=== PATIENT | female | born 1975 | race Caucasian/White ===

== ENCOUNTER 2016-11-29 09:22 | Observation (INO) | payer MEDICAID ==
[~2016-11-29] VITALS: Ht 175.3 cm; Wt 155.0 kg
[2016-11-29] VITALS (13 sets, daily range): BP systolic 114–143; BP diastolic 58–86; PULSE 64–95; RESP 16–22; TEMP 97–98.4; O2SAT 95–100
[~2016-11-29 09:22] MED LIST: ADVA100A INH; FERR325T PO; LEVO200T4 PO; MEDR150I9 IM; METR500T10 PO; MULT1TAB46; VENTAER INH
[2016-11-29] MEDS ORDERED: CYCL1TAB29 PO (09:46)
[2016-11-29] MEDS ORDERED: OMEP40CA2 PO (09:46)
[2016-11-29] MEDS ORDERED: HYDR25TA5 PO (09:46)
[2016-11-29 10:12] LABS: MEAN CORPUSCULAR HGB CONC 28.3 % (32.0-36.0)
--- NOTE | 2016-11-29 10:15 | PD ---
HPI Chief Complaint: Abnormal Results Time Seen by Provider: 09:51 Travel History International Travel<30 days: No Contact w/Intl Traveler<30days: No Traveled to known affect area: No History of Present Illness HPI 41-year-old female complains of generalized malaise and anemia. Patient has history of menorrhagia and anemia. Patient has been seen by supply specialist and retail and restaurant associate. Patient had blood tests done 4 days ago and hemoglobin was found to be 6.9. Patient was advised by her retail and restaurant associate Dr. Waddell to go to the hospital for blood transfusion. Patient denies any headache. Patient denies any chest pain or shortness of breath. Patient denies abdominal pain. Patient states that menstruation period stop 2 days ago. Patient denies any dysuria or frequency. Patient denies any fever chills. Patient also has history of COPD, Graves' disease with hypothyroidism, GERD, COPD, fibromyalgia and chronic iron deficiency anemia. PFSH Past Medical History Anemia: Yes (CHRONIC IS SUPPOSED TO BE ON IRON, IS OUT) Asthma: Yes Autoimmune Disease: No Blood Disorders: No Anxiety: Yes Depression: Yes Cancer: No Cardiovascular Problems: No Diabetes: No Diminished Hearing: No Endocrine: Yes Genitourinary: No Immune Disorder: No Musculoskeletal: No Neurologic: No Psychiatric: Yes Reproductive: No Respiratory: Yes Immunizations Current: Yes Thyroid Disease: Yes (HYPO) ?: Not LMP: 11/24/16 : 1 Para: 0 Miscarriage: 1 Ovarian Cysts: Yes Tubal Ligation: Yes Past Surgical History Abdominal Surgery: Yes (exp. lap) AICD: No Arteriovenous Shunt: No Cardiac Surgery: No Ear Surgery: No Endocrine Surgery: No Eye Surgery: No Genitourinary Surgery: No Gynecologic Surgery: No Insulin Pump: No Joint Replacement: No Oral Surgery: No Pacemaker: No Other Surgery: Yes (LAPAROSCOPY FOR CYSTS ) Social History Alcohol Use: Yes (OCCASSIONAL) Tobacco Use: Yes (ABOUT A 1/2 PPD) Substance Use: Yes (Marijuana use, HX COCAINE USE) Allergies-Medications (Allergen,Severity, Reaction): Coded Allergies: Propylthiouracil (Verified Allergy, Mild, 11/29/16) Reported Meds & Prescriptions Reported Meds & Active Scripts Active Depo-Provera Inj (Medroxyprogesterone Inj) 150 Mg/Ml Inj 150 Mg IM Q90D PRN Reported Omeprazole 40 Mg Cap 40 Mg PO DAILY Hydrochlorothiazide 25 Mg Tab 25 Mg PO DAILY Flexeril (Cyclobenzaprine HCl) 10 Mg Tab 10 Mg PO TID Levothyroxine (Levothyroxine Sodium) 200 Mcg Tab 200 Mcg PO DAILY Advair Diskus Inh (Fluticasone-Salmeterol Inh) 100-50 Mcg/Blist Aer 1 Puff INH BID Rinse mouth after use. Ventolin Hfa 18 GM Inh (Albuterol Sulfate) 90 Mcg/Act Aer 2 Puff INH Q4-6H PRN Review of Systems General / Constitutional: No: Fever Eyes: No: Visual changes HENT: No: Headaches Cardiovascular: No: Chest Pain or Discomfort Respiratory: No: Shortness of Breath Gastrointestinal: No: Abdominal Pain Genitourinary: No: Dysuria Musculoskeletal: No: Pain Skin: No Rash Neurologic: No: Weakness Psychiatric: No: Depression Endocrine: No: Polydipsia Hematologic/Lymphatic: No: Easy Bruising Physical Exam Narrative GENERAL: Well-nourished, well-developed patient. SKIN: Focused skin assessment warm/dry. HEAD: Normocephalic. EYES: No scleral icterus. No injection or drainage. NECK: Supple, trachea midline. No JVD or lymphadenopathy. CARDIOVASCULAR: Regular rate and rhythm without murmurs, gallops, or rubs. RESPIRATORY: Breath sounds equal bilaterally. No accessory muscle use. GASTROINTESTINAL: Abdomen soft, non-tender, nondistended. MUSCULOSKELETAL: No cyanosis, or edema. BACK: Nontender without obvious deformity. No CVA tenderness. Neurologic exam normal. Data Data Last Documented VS Vital Signs Date Time Temp Pulse Resp B/P Pulse Ox O2 Delivery O2 Flow Rate FiO2 11/29/16 11:00 88 16 142/63 97 Room Air 11/29/16 09:24 98.4 Orders Complete Blood Count With Diff (11/29/16 10:10) Basic Metabolic Panel (Bmp) (11/29/16 10:10) Prothrombin Time / Inr (Pt) (11/29/16 10:10) Act Partial Throm Time (Ptt) (11/29/16 10:10) Iv Access Insert/Monitor (11/29/16 10:10) Ecg Monitoring (11/29/16 10:10) Oximetry (11/29/16 10:10) Type And Screen (11/29/16 10:10) Vascular Access Team Consult/P PRN (11/29/16 10:43) Vascular Poc Ultrasound (11/29/16 ) Morphine Inj (Morphine Inj) (11/29/16 13:15) Ondansetron Inj (Zofran Inj) (11/29/16 13:15) Labs Laboratory Tests Test 11/29/16 12:51 White Blood Count 13.2 TH/MM3 Red Blood Count 3.50 MIL/MM3 Hemoglobin 7.2 GM/DL Hematocrit 25.5 % Mean Corpuscular Volume 72.9 FL Mean Corpuscular Hemoglobin 20.6 PG Mean Corpuscular Hemoglobin 28.3 % Concent Red Cell Distribution Width 22.5 % Platelet Count 269 TH/MM3 Mean Platelet Volume 8.4 FL Neutrophils (%) (Auto) 74.5 % Lymphocytes (%) (Auto) 18.1 % Monocytes (%) (Auto) 3.9 % Eosinophils (%) (Auto) 2.2 % Basophils (%) (Auto) 1.3 % Neutrophils # (Auto) 9.8 TH/MM3 Lymphocytes # (Auto) 2.4 TH/MM3 Monocytes # (Auto) 0.5 TH/MM3 Eosinophils # (Auto) 0.3 TH/MM3 Basophils # (Auto) 0.2 TH/MM3 CBC Comment AUTO DIFF Differential Total Cells 100 Counted Neutrophils % (Manual) 67 % Band Neutrophils % 5 % Lymphocytes % 15 % Monocytes % 7 % Eosinophils % 3 % Neutrophils # (Manual) 9.9 TH/MM3 Metamyelocytes 2 % Myelocytes 1 % Nucleated Red Blood Cells 4 /100 WBC Differential Comment FINAL DIFF MANUAL Platelet Estimate NORMAL Platelet Morphology Comment NORMAL Polychromasia 5.0 % Prothrombin Time 10.4 SEC Prothromb Time International 0.9 RATIO Ratio Activated Partial 26.9 SEC Thromboplast Time Sodium Level 141 MEQ/L Potassium Level 3.5 MEQ/L Chloride Level 104 MEQ/L Carbon Dioxide Level 29.1 MEQ/L Anion Gap 8 MEQ/L Blood Urea Nitrogen 9 MG/DL Creatinine 0.80 MG/DL Estimat Glomerular Filtration 80 ML/MIN Rate Random Glucose 90 MG/DL Calcium Level 8.4 MG/DL Blood Type O POSITIVE Antibody Screen NEGATIVE MDM Medical Decision Making Medical Screen Exam Complete: Yes Emergency Medical Condition: Yes Interpretation(s) 1408 p.m. CBC WBC 13.2. Hemoglobin 7.2 hematocrit 25.5. MCV 72.9. 74 neutrophil. BMP within normal limit. Calcium 8.4. Differential Diagnosis Differential diagnosis including anemia, viral syndrome, electrolyte abnormality , dehydration. Narrative Course 41-year-old female with generalized malaise and history of chronic anemia. Diagnosis Primary Impression: Iron deficiency anemia Qualified Code: D50.9 - Iron deficiency anemia, unspecified iron deficiency anemia type Dayron Mckeon MD November 29, 2016 10:15
[2016-11-29 13:14] LABS: AUTOMATED NEUTROPHIL # 9.8 TH/MM3 (1.8-7.7); BASOPHIL # 0.2 TH/MM3 (0-0.2); BASOPHIL % 1.3 % (0.0-2.0); EOSINOPHIL # 0.3 TH/MM3 (0-0.4); EOSINOPHIL % 2.2 % (0.0-4.0); HEMATOCRIT 25.5 % (35.0-46.0); HEMO FLAGS AUTO DIFF; LYMPH % 18.1 % (9.0-44.0); LYMPHOCYTE # 2.4 TH/MM3 (1.0-4.8); MEAN CELL VOLUME 72.9 FL (80.0-100.0); MEAN CORPUSCULAR HEMOGLOBIN 20.6 PG (27.0-34.0); MONO % 3.9 % (0.0-8.0); NEUT % 74.5 % (16.0-70.0); PLATELET COUNT 269 TH/MM3 (150-450); RED CELL DISTRIBUTION WIDTH 22.5 % (11.6-17.2); WHITE BLOOD COUNT 13.2 TH/MM3 (4.0-11.0)
[2016-11-29] MEDS ORDERED: ONDANSETRON HCL 4 MG/2 ML VIAL IV PUSH ONE (13:15)
[2016-11-29] MEDS ORDERED: MORPHINE SULFATE 4 MG/ML INJ IV PUSH ONE (13:15)
[2016-11-29 13:26] LABS: APTT (PATIENT) 26.9 SEC (24.3-30.1); INTERNATIONAL NORMALIZED RATIO 0.9 RATIO; PROTHROMBIN TIME - PATIENT 10.4 SEC (9.8-11.6)
[2016-11-29 13:48] LABS: BICARBONATE 29.1 MEQ/L (21.0-32.0); POTASSIUM 3.5 MEQ/L (3.5-5.1)
[2016-11-29 13:50] LABS: BANDS 5 % (0-6); CORRECTED NUCLEATED RBC 4 /100 WBC (0-0); EOSINOPHILS 3 % (0-4); METAMYELOCYTES 2 % (0-1); MYELOCYTES 1 % (0-0); NEUTROPHIL # MANUAL DIFF 9.9 TH/MM3 (1.8-7.7); POLYS (SEG NEUTROPHILS) 67 % (16-70); WBC DIFF SAMPLE 100
[2016-11-29 13:52] LABS: PLATELET ESTIMATE SMEAR NORMAL (NORMAL); PLATELET MORPHOLOGY NORMAL (NORMAL); SCAN/DIFF FINAL DIFF MANUAL
[2016-11-29] MEDS ORDERED: SODIUM CHLOR 0.9% 250 ML INJ 250 ML IV ONE (14:30)
[2016-11-29] MEDS ORDERED: SODIUM CHLORIDE 0.9% FLUSH 10 ML FLUSH IV FLUSH PRN (15:00)
[2016-11-29] MEDS ORDERED: ACETAMINOPHEN 325 MG TAB PO PRN (15:00)
[2016-11-29] MEDS ORDERED: NALOXONE HCL 0.4 MG/ML AMP IV PRN (15:00)
[2016-11-29] MEDS ORDERED: ONDANSETRON HCL 4 MG/2 ML VIAL IVP PRN (15:00)
[2016-11-29] MEDS ORDERED: MAGNESIUM HYDROXIDE SUSP 30 ML CUP PO PRN (15:00)
[2016-11-29 16:15] LABS: TRANSFERRIN IRON PROFILE 272 MG/DL (200-360)
--- NOTE | 2016-11-29 17:04 | HHI.HP ---
[facility] Richard Knight Admission Diagnosis anemia Diagnoses: Chief Complaint: Generalized weakness, and anemia Travel History International Travel<30 Days: No Contact w/Intl Traveler <30 Da: No Traveled to Known Affected Are: No Sepsis Criteria SIRS Criteria (2 or more): Heart rate over 90, RR > 20 or PaCO2 < 32, WBC > 84365, < 4000 or > 10% bands History of Present Illness Ms. Klein is a pleasant 41-year-old female with a history of iron deficiency anemia, hypothyroidism and morbid obesity who presents to the emergency department on 11/29/2016 with generalized malaise and anemia. Patient has a history of menorrhagia and anemia. She is being followed by her er medical technician and house piping inspector. Four days ago her lab work shows hemoglobin 6.9. She was advised by her house piping inspector to come to the hospital for blood transfusion. She reports her menstruation periods stopped 2 days ago. Patient denies any chest pain, shortness of breath, fever or chills. Denies any changes in bowel or bladder habits. Review of Systems Except as stated in HPI: all other systems reviewed are Neg Past Family Social History Past Medical History Anemia, hypothyroidism, anxiety and depression Past Surgical History Exploratory laparotomy Reported Medications Depo-Provera Inj (Medroxyprogesterone Inj) 150 Mg/Ml Inj 150 Mg IM Q90D PRN Reported Omeprazole 40 Mg Cap 40 Mg PO DAILY Hydrochlorothiazide 25 Mg Tab 25 Mg PO DAILY Flexeril (Cyclobenzaprine HCl) 10 Mg Tab 10 Mg PO TID Levothyroxine (Levothyroxine Sodium) 200 Mcg Tab 200 Mcg PO DAILY Advair Diskus Inh (Fluticasone-Salmeterol Inh) 100-50 Mcg/Blist Aer 1 Puff INH BID Rinse mouth after use. Ventolin Hfa 18 GM Inh (Albuterol Sulfate) 90 Mcg/Act Aer 2 Puff INH Q4-6H PRN Allergies: Coded Allergies: Propylthiouracil (Verified Allergy, Mild, 11/29/16) Family History Mother - Cervical cancer, ovarian cysts. Social History Smokes about half pack a day. Drinks alcohol occasionally. Uses marijuana sometimes. Physical Exam Vital Signs Vital Signs Date Time Temp Pulse Resp B/P Pulse Ox O2 Delivery O2 Flow Rate FiO2 11/29/16 16:38 98.0 75 20 137/68 97 11/29/16 14:00 78 16 134/58 97 Room Air 11/29/16 11:00 88 16 142/63 97 Room Air 11/29/16 10:48 22 99 Room Air 11/29/16 09:24 98.4 95 22 137/86 98 Physical Exam GENERAL: This is a well-nourished, well-developed patient, in no apparent distress. Morbidly obese. SKIN: No rashes, ecchymoses or lesions. Warm and dry. HEAD: Atraumatic. Normocephalic. No temporal or scalp tenderness. EYES: Pupils equal round and reactive. No injection or drainage. Bilateral exophthalmos present. ENT: Nose without bleeding, purulent drainage or septal hematoma. Airway patent. NECK: Trachea midline. No lymphadenopathy. Supple, nontender, no meningeal signs. CARDIOVASCULAR: Regular rate and rhythm without murmurs, gallops, or rubs. No JVD. RESPIRATORY: Clear to auscultation. Breath sounds equal bilaterally. No wheezes , rales, or rhonchi. GASTROINTESTINAL: Abdomen soft, non-tender, nondistended. No guarding. MUSCULOSKELETAL: Extremities without clubbing, cyanosis, or edema. NEUROLOGICAL: Awake and alert. Cranial nerves II through XII intact. No focal neurological deficits. Normal speech. Laboratory Laboratory Tests Test 11/29/16 11/29/16 12:51 14:22 White Blood Count 13.2 Red Blood Count 3.50 Hemoglobin 7.2 Hematocrit 25.5 Mean Corpuscular Volume 72.9 Mean Corpuscular Hemoglobin 20.6 Mean Corpuscular Hemoglobin 28.3 Concent Red Cell Distribution Width 22.5 Platelet Count 269 Mean Platelet Volume 8.4 Neutrophils (%) (Auto) 74.5 Lymphocytes (%) (Auto) 18.1 Monocytes (%) (Auto) 3.9 Eosinophils (%) (Auto) 2.2 Basophils (%) (Auto) 1.3 Neutrophils # (Auto) 9.8 Lymphocytes # (Auto) 2.4 Monocytes # (Auto) 0.5 Eosinophils # (Auto) 0.3 Basophils # (Auto) 0.2 CBC Comment AUTO DIFF Differential Total Cells 100 Counted Neutrophils % (Manual) 67 Band Neutrophils % 5 Lymphocytes % 15 Monocytes % 7 Eosinophils % 3 Neutrophils # (Manual) 9.9 Metamyelocytes 2 Myelocytes 1 Nucleated Red Blood Cells 4 Differential Comment FINAL DIFF MANUAL Platelet Estimate NORMAL Platelet Morphology Comment NORMAL Polychromasia 5.0 Prothrombin Time 10.4 Prothromb Time International 0.9 Ratio Activated Partial 26.9 Thromboplast Time Sodium Level 141 Potassium Level 3.5 Chloride Level 104 Carbon Dioxide Level 29.1 Anion Gap 8 Blood Urea Nitrogen 9 Creatinine 0.80 Estimat Glomerular Filtration 80 Rate Random Glucose 90 Calcium Level 8.4 Iron Level 62 Total Iron Binding Capacity 381 Percent Iron Saturation 16.3 Blood Type O POSITIVE Antibody Screen NEGATIVE Crossmatch Leukocyte-Reduced Red Blood Cells Blood Bank Comment Result Diagram: 11/29/16 1251 11/29/16 1251 Assessment and Plan Problem List: (1) Iron deficiency anemia ICD Code: D50.9 Status: Acute (2) Morbid obesity with BMI of 50.0-59.9, adult ICD Code: E66.01 Status: Acute (3) Hypothyroidism ICD Code: E03.9 Status: Acute (4) GERD (gastroesophageal reflux disease) ICD Code: K21.9 Status: Acute Assessment and Plan Ms. Klein is a 41-year-old female with a history of morbid obesity, hypothyroidism, chronic anemia who presented to the emergency department on 2016 due to generalized malaise and anemia. She recently had blood work which suggested hemoglobin 6.9 and patient was subsequently advised to come to the emergency room for blood transfusion. She denied any chest pain, shortness of breath, fever or chills. - Acute iron deficiency anemia - Likely due to menorrhagia. - Iron study shows iron level 62, TIBC is 381 iron saturation 16.3%. - Patient gets regular Iron infusion at her house piping inspector's office. - Patient is receiving 1 unit of PRBCs. - Headache - Acetaminophen PRN - Toradol given once which seems to help to relieve her symptoms. - Hypothyroidism - continue levothyroxine 200 g daily. - Hypertension - continue HCTZ 25 mg daily. - GERD - continue PPI. Full code. SCDs. Discharge plan: Discharge home on 11/30/2016 and follow up with her house piping inspector. Abhinav Silvestre DO November 29, 2016 17:04
[2016-11-29] MEDS ORDERED: KETOROLAC TROMETHAMINE 30 MG/ML (IVP) VIAL IV PUSH ONE (17:15)
[2016-11-29] MEDS: CYCLOBENZAPRINE HCL 10 MG TAB PO PRN (17:36)
[2016-11-29] MEDS: SODIUM CHLORIDE 0.9% FLUSH 10 ML FLUSH IV FLUSH SCH (20:39)
[2016-11-29 21:05] LABS: MEAN CORPUSCULAR HGB CONC 29.7 % (32.0-36.0)
[2016-11-29] MEDS ORDERED: CYCLOBENZAPRINE HCL 10 MG TAB PO ONE (22:15)
[2016-11-30 01:19] VITALS: BP 132/75; PULSE 64; RESP 19; TEMP 97.6; O2SAT 95
[2016-11-30 04:16] VITALS: BP 140/71; PULSE 62; RESP 18; TEMP 96; O2SAT 97
[2016-11-30] MEDS ORDERED: LEVOTHYROXINE SODIUM 200 MCG TAB PO SCH (06:00)
[2016-11-30 07:56] VITALS: BP 119/56; PULSE 68; RESP 20; TEMP 98.3; O2SAT 95
[2016-11-30] MEDS: SODIUM CHLORIDE 0.9% FLUSH 10 ML FLUSH IV FLUSH SCH (08:06)
[2016-11-30] MEDS: CYCLOBENZAPRINE HCL 10 MG TAB PO PRN (08:06)
[2016-11-30 08:43] LABS: AUTOMATED NEUTROPHIL # 8.3 TH/MM3 (1.8-7.7); BASOPHIL # 0.1 TH/MM3 (0-0.2); BASOPHIL % 0.7 % (0.0-2.0); EOSINOPHIL # 0.2 TH/MM3 (0-0.4); HEMATOCRIT 29.5 % (35.0-46.0); LYMPH % 18.8 % (9.0-44.0); LYMPHOCYTE # 2.1 TH/MM3 (1.0-4.8); MEAN CORPUSCULAR HEMOGLOBIN 22.3 PG (27.0-34.0); MONO % 4.2 % (0.0-8.0); NEUT % 74.3 % (16.0-70.0); PLATELET COUNT 222 TH/MM3 (150-450); RED BLOOD COUNT 3.93 MIL/MM3 (4.00-5.30); RED CELL DISTRIBUTION WIDTH 26.2 % (11.6-17.2); WHITE BLOOD COUNT 11.2 TH/MM3 (4.0-11.0)
[2016-11-30 08:45] LABS: HEMO FLAGS AUTO DIFF
[2016-11-30] MEDS ORDERED: NON-FORMULARY DRUG (Omeprazole 40 MG) PO SCH (09:00)
[2016-11-30] MEDS ORDERED: HYDROCHLOROTHIAZIDE 25 MG TAB PO SCH (09:00)
[2016-11-30] MEDS ORDERED: PANTOPRAZOLE SOD 40 MG DELAYED RELEASE TAB PO SCH (09:00)
[2016-11-30 09:37] LABS: BANDS 5 % (0-6); CORRECTED NUCLEATED RBC 2 /100 WBC (0-0); EOSINOPHILS 2 % (0-4); METAMYELOCYTES 1 % (0-1); NEUTROPHIL # MANUAL DIFF 8.1 TH/MM3 (1.8-7.7); POLYS (SEG NEUTROPHILS) 66 % (16-70); WBC DIFF SAMPLE 100
[2016-11-30 09:38] LABS: POLYCHROMASIA 4.2 % (0.0-1.9)
[2016-11-30 09:39] LABS: STOMATOCYTES 1+ (NORMAL)
[2016-11-30 09:41] LABS: PLATELET ESTIMATE SMEAR NORMAL (NORMAL); PLATELET MORPHOLOGY NORMAL (NORMAL); SCAN/DIFF FINAL DIFF MANUAL
--- NOTE | 2016-11-30 09:53 | HHI.PR ---
Subjective Remarks Follow up for anemia. Patient is doing well. No fever, chills. Objective Vitals Vital Signs Date Time Temp Pulse Resp B/P Pulse Ox O2 Delivery O2 Flow Rate FiO2 11/30/16 07:56 98.3 68 20 119/56 95 11/30/16 04:16 96.0 62 18 140/71 97 11/30/16 01:19 97.6 64 19 132/75 95 11/29/16 23:56 97.4 65 18 131/66 95 11/29/16 23:39 97.5 75 18 143/77 98 11/29/16 23:25 97.3 70 18 114/58 95 11/29/16 22:55 97.9 64 17 128/60 95 11/29/16 20:50 97.0 75 19 128/62 97 11/29/16 19:40 97.4 74 17 128/61 99 11/29/16 18:55 98.0 73 18 132/62 97 11/29/16 18:40 98.2 77 20 131/63 100 11/29/16 16:38 98.0 75 20 137/68 97 11/29/16 14:00 78 16 134/58 97 Room Air 11/29/16 11:00 88 16 142/63 97 Room Air 11/29/16 10:48 22 99 Room Air Result Diagram: 11/30/16 0815 11/29/16 1251 Objective Remarks GENERAL: AOx3, NAD. Morbidly obese. SKIN: Warm and dry. HEAD: Normocephalic. EYES: No scleral icterus. No injection or drainage. Bilateral exophthalmos. NECK: Supple, trachea midline. No JVD or lymphadenopathy. CARDIOVASCULAR: Regular rate and rhythm without murmurs, gallops, or rubs. RESPIRATORY: Breath sounds equal bilaterally. No accessory muscle use. GASTROINTESTINAL: Abdomen soft, non-tender, nondistended. MUSCULOSKELETAL: No cyanosis, or edema. BACK: Nontender without obvious deformity. No CVA tenderness. A/P Problem List: (1) Iron deficiency anemia ICD Code: D50.9 Status: Acute (2) Morbid obesity with BMI of 50.0-59.9, adult ICD Code: E66.01 Status: Acute (3) Hypothyroidism ICD Code: E03.9 Status: Acute (4) GERD (gastroesophageal reflux disease) ICD Code: K21.9 Status: Acute Assessment and Plan Ms. Klein is a 41-year-old female with a history of morbid obesity, hypothyroidism, chronic anemia who presented to the emergency department on 2016 due to generalized malaise and anemia. She recently had blood work which suggested hemoglobin 6.9 and patient was subsequently advised to come to the emergency room for blood transfusion. She denied any chest pain, shortness of breath, fever or chills. - Acute iron deficiency anemia - Likely due to menorrhagia. - Iron study shows iron level 62, TIBC is 381 iron saturation 16.3%. - Patient gets regular Iron infusion at her visual arts teacher's office. - Patient received 1 unit of PRBCs. Hemoglobin today 8.8. - Headache - Acetaminophen PRN - Toradol given once which seems to help to relieve her symptoms. - Hypothyroidism - continue levothyroxine 200 g daily. Patient is advised to follow-up with an scout. - Hypertension - continue HCTZ 25 mg daily. - GERD - continue PPI. Full code. SCDs. Discharge patient to home Condition on discharge: Improved Heart healthy Diet as tolerated Ad Cristina activity Rx written: None. Follow-up with primary care physician PRN, Hematology within one week. Endocrinology evaluation is recommended. Abhinav Silvestre DO November 30, 2016 9:53 am
== END 2016-11-30 14:01 | disposition home or self-care (01) ==
LOC: NEPC 09:22 → NEDA 15:07 → NEPFCDU 16:32
PROVIDERS: ADMIT Hospitalist; ATTEND Hospitalist
DX: D50.9 Iron deficiency anemia, unspecified (principal); E03.9 Hypothyroidism, unspecified; K21.9 Gastro-esophageal reflux disease without esophagitis; R51 Headache; J45.909 Unspecified asthma, uncomplicated; I10 Essential (primary) hypertension; F17.200 Nicotine dependence, unspecified, uncomplicated; E66.01 Morbid (severe) obesity due to excess calories; Z68.43 Body mass index [BMI] 50.0-59.9, adult; Z88.8 Allergy status to other drugs, medicaments and biological substances; Z79.51 Long term (current) use of inhaled steroids
CPT/HCPCS: 36430; 76937; 80048; 82948; 83540; 83550; 84443; 85007; 85027; 85610; 85730; 86850; 86900; 86901; 86920; 96374; 96375; 99285; G0378; J1885; J2270; J2405; J7050; P9016

== ENCOUNTER 2017-06-17 13:29 | Inpatient (IN) | payer MEDICAID ==
[~2017-06-17] VITALS: Ht 175.3 cm; Wt 159.0 kg
[~2017-06-17 13:29] MED LIST changes: +CYCL10TA PO; -FERR325T PO; +HYDR25TA5 PO; -METR500T10 PO; -MULT1TAB46; +OMEP40CA2 PO
[2017-06-17 13:30] VITALS: BP 137/64; PULSE 88; RESP 20; TEMP 98.6; O2SAT 100
--- NOTE | 2017-06-17 14:31 | PD ---
HPI Chief Complaint: Abnormal Results Time Seen by Provider: 14:18 Travel History International Travel<30 days: No Contact w/Intl Traveler<30days: No Traveled to known affect area: No History of Present Illness HPI 42-year-old female complains of generalized malaise and weakness dizziness and joint pain and shortness of breath. Patient has history of iron deficiency anemia with recurrent need for blood transfusion. Patient has been seen by personal physician and had CBC done recently and reported hemoglobin was low. Patient was advised to go the ED for evaluation. Patient denies any chest pain or shortness of breath. Patient denies abdominal pain. Patient denies any nausea vomiting diarrhea. Patient has history of menorrhagia which was the source of anemia in the past. PFSH Past Medical History Anemia: Yes Asthma: Yes Autoimmune Disease: No Blood Disorders: No Anxiety: Yes Depression: Yes Heart Rhythm Problems: No Cancer: No Cardiovascular Problems: No High Cholesterol: No Chemotherapy: No Chest Pain: No Congestive Heart Failure: No COPD: Yes Diabetes: No Diminished Hearing: No Endocrine: Yes Gastrointestinal Disorders: Yes (takes omeprazole) GERD: Yes Genitourinary: No Immune Disorder: No Musculoskeletal: Yes Neurologic: Yes (seizures in childhood) Psychiatric: Yes Reproductive: Yes (bleeding cyst on ovaries) Respiratory: Yes Immunizations Current: Yes Radiation Therapy: Yes (radioactive iodine for thyroid) Sleep Apnea: No Thyroid Disease: Yes (Graves disease) ?: Not LMP: 06/12/17 : 1 Para: 0 Miscarriage: 1 Ovarian Cysts: Yes Tubal Ligation: Yes Past Surgical History Abdominal Surgery: Yes (exp. 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 Proair Hfa 8.5 GM Inh (Albuterol Sulfate) 90 Mcg/Act Aer 2 Puff INH Q4HR PRN 108 mcg/actuation Naproxen Sodium 220 Mg Tab 220 Mg PO TID PRN Furosemide 40 Mg Tab 40 Mg PO DAILY Potassium Chloride ER (Potassium Chloride) 10 Meq Cap 10 Meq PO DAILY Omeprazole 40 Mg Cap 40 Mg PO DAILY Hydrochlorothiazide 25 Mg Tab 25 Mg PO DAILY Flexeril (Cyclobenzaprine HCl) 10 Mg Tab 10 Mg PO TID Levothyroxine (Levothyroxine Sodium) 200 Mcg Tab 200 Mcg PO DAILY Review of Systems General / Constitutional: No: Fever Eyes: No: Visual changes HENT: No: Headaches Cardiovascular: No: Chest Pain or Discomfort Respiratory: No: Shortness of Breath Gastrointestinal: No: Abdominal Pain Genitourinary: No: Dysuria Musculoskeletal: No: Pain Skin: No Rash Neurologic: No: Weakness Psychiatric: No: Depression Endocrine: No: Polydipsia Hematologic/Lymphatic: No: Easy Bruising Physical Exam Narrative GENERAL: Well-nourished, well-developed patient. SKIN: Focused skin assessment warm/dry. HEAD: Normocephalic. EYES: No scleral icterus. No injection or drainage. NECK: Supple, trachea midline. No JVD or lymphadenopathy. CARDIOVASCULAR: Regular rate and rhythm without murmurs, gallops, or rubs. RESPIRATORY: Breath sounds equal bilaterally. No accessory muscle use. GASTROINTESTINAL: Abdomen soft, non-tender, nondistended. MUSCULOSKELETAL: No cyanosis, or edema. BACK: Nontender without obvious deformity. No CVA tenderness. Neurologic exam normal. Data Data Last Documented VS Vital Signs Date Time Temp Pulse Resp B/P (MAP) Pulse Ox O2 Delivery O2 Flow Rate FiO2 06/17/17 15:09 74 17 137/64 (88) 100 Room Air 06/17/17 13:30 98.6 Orders Orders Complete Blood Count With Diff (06/17/17 14:24) Comprehensive Metabolic Panel (06/17/17 14:24) Prothrombin Time / Inr (Pt) (06/17/17 14:24) Act Partial Throm Time (Ptt) (06/17/17 14:24) Iv Access Insert/Monitor (06/17/17 14:24) Ecg Monitoring (06/17/17 14:24) Oximetry (06/17/17 14:24) Type And Screen (06/17/17 14:24) Ferritin (06/17/17 14:26) Iron/Tibc Profile (06/17/17 14:26) Red Blood Cells (Rbc) (06/17/17 15:34) Blood Product Administration (06/17/17 15:34) Sodium Chlor 0.9% 250 Ml Inj (Ns 250 Ml (06/17/17 15:45) Labs Laboratory Tests Test 06/17/17 14:56 White Blood Count 7.3 TH/MM3 Red Blood Count 3.36 MIL/MM3 Hemoglobin 5.4 GM/DL Hematocrit 19.8 % Mean Corpuscular Volume 59.0 FL Mean Corpuscular Hemoglobin 16.0 PG Mean Corpuscular Hemoglobin Concent 27.1 % Red Cell Distribution Width 20.0 % Platelet Count 287 TH/MM3 Mean Platelet Volume 8.6 FL Neutrophils (%) (Auto) 65.5 % Lymphocytes (%) (Auto) 26.4 % Monocytes (%) (Auto) 6.3 % Eosinophils (%) (Auto) 0.3 % Basophils (%) (Auto) 1.5 % Neutrophils # (Auto) 4.8 TH/MM3 Lymphocytes # (Auto) 1.9 TH/MM3 Monocytes # (Auto) 0.5 TH/MM3 Eosinophils # (Auto) 0.0 TH/MM3 Basophils # (Auto) 0.1 TH/MM3 CBC Comment DIFF FINAL Differential Comment Prothrombin Time 10.7 SEC Prothromb Time International Ratio 1.0 RATIO Activated Partial Thromboplast Time 25.8 SEC Blood Urea Nitrogen 12 MG/DL Creatinine 1.15 MG/DL Random Glucose 98 MG/DL Total Protein 7.2 GM/DL Albumin 3.6 GM/DL Calcium Level 8.0 MG/DL Alkaline Phosphatase 116 U/L Aspartate Amino Transf (AST/SGOT) 17 U/L Alanine Aminotransferase (ALT/SGPT) 21 U/L Total Bilirubin 0.4 MG/DL Sodium Level 139 MEQ/L Potassium Level 3.7 MEQ/L Chloride Level 105 MEQ/L Carbon Dioxide Level 27.9 MEQ/L Anion Gap 6 MEQ/L Estimat Glomerular Filtration Rate 52 ML/MIN Iron Level 18 MCG/DL Total Iron Binding Capacity 522 MCG/DL Percent Iron Saturation 3.4 % Ferritin 3 NG/ML MDM Medical Decision Making Medical Screen Exam Complete: Yes Emergency Medical Condition: Yes Interpretation(s) 1533 PM. CBC WBC 7.3. Hemoglobin 5.4 hematocrit 19.8. MCV 59.0. Differential Diagnosis Differential diagnosis including anemia, rectal imbalance, dehydration. Narrative Course 42-year-old female generalized malaise and weakness and blurred vision and dizziness shortness of breath. History of iron deficient anemia that required blood transfusions in the past. Type and cross 3 units of blood. Patient will be admitted to observation for blood transfusion. Diagnosis Primary Impression: Iron deficiency anemia Qualified Codes: D50.8 - Other iron deficiency anemias Admitting Information Admitting Physician Requests: Observation Dayron Mckeon MD Jun 17, 2017 14:31
[2017-06-17 15:09] VITALS: BP 137/64; PULSE 74; RESP 17; O2SAT 100
[2017-06-17] MEDS ORDERED: ADVA250A INH (15:13)
[2017-06-17] MEDS ORDERED: MEDI220T PO (15:13)
[2017-06-17] MEDS ORDERED: FURO40TA PO (15:13)
[2017-06-17] MEDS ORDERED: POTA10CA PO (15:13)
[2017-06-17] MEDS ORDERED: ALBUAER3 INH (15:13)
[2017-06-17 15:17] LABS: AUTOMATED NEUTROPHIL # 4.8 TH/MM3 (1.8-7.7); BASOPHIL # 0.1 TH/MM3 (0-0.2); BASOPHIL % 1.5 % (0.0-2.0); EOSINOPHIL % 0.3 % (0.0-4.0); LYMPH % 26.4 % (9.0-44.0); LYMPHOCYTE # 1.9 TH/MM3 (1.0-4.8); MONO % 6.3 % (0.0-8.0); NEUT % 65.5 % (16.0-70.0); PLATELET COUNT 287 TH/MM3 (150-450); RED BLOOD COUNT 3.36 MIL/MM3 (4.00-5.30); WHITE BLOOD COUNT 7.3 TH/MM3 (4.0-11.0)
[2017-06-17 15:19] LABS: HEMO FLAGS DIFF FINAL; MEAN CORPUSCULAR HGB CONC 27.1 % (32.0-36.0)
[2017-06-17 15:22] LABS: HEMATOCRIT 19.8 % (35.0-46.0)
[2017-06-17 15:34] LABS: ANION GAP 6 MEQ/L (5-15); AST (GOT) 17 U/L (15-37); BICARBONATE 27.9 MEQ/L (21.0-32.0); BLOOD UREA NITROGEN 12 MG/DL (7-18); CHLORIDE 105 MEQ/L (98-107); GLOMERULAR FILTRATION RATE 52 ML/MIN (>89); POTASSIUM 3.7 MEQ/L (3.5-5.1); SODIUM (NA) 139 MEQ/L (136-145); TRANSFERRIN IRON PROFILE 373 MG/DL (200-360)
[2017-06-17 15:36] LABS: APTT (PATIENT) 25.8 SEC (24.3-30.1); PROTHROMBIN TIME - PATIENT 10.7 SEC (9.8-11.6)
[2017-06-17 15:37] LABS: ALKALINE PHOSPHATASE 116 U/L (45-117); ALT (GPT) 21 U/L (10-53); FERRITIN 3 NG/ML (8-252); TOTAL BILIRUBIN ADULT 0.4 MG/DL (0.2-1.0)
[2017-06-17] MEDS ORDERED: FUROSEMIDE 20 MG/2 ML VIAL IV PUSH ONE (15:45)
[2017-06-17] MEDS ORDERED: SODIUM CHLOR 0.9% 250 ML INJ 250 ML IV ONE (15:45)
--- NOTE | 2017-06-17 16:28 | HHI.HP ---
HPI Service [facility] Primary Care Physician Richard Knight D.O. Admission Diagnosis severe anemia. Diagnoses: Travel History International Travel<30 Days: No Contact w/Intl Traveler <30 Da: No Traveled to Known Affected Are: No History of Present Illness 42-year-old female with a past medical history significant for iron deficiency anemia and hypothyroidism presents to the emergency department with generalized malaise, weakness, dizziness and shortness of breath. The patient states she knew that her hemoglobin was low and that it was likely time for a blood transfusion. She has a trial consultant, Dr. Canchola, in [facility] who monitors her and has her on IV iron transfusions. The patient reports she has not been getting her iron transfusions because it is too much of a strain on her to make it to the office and to sit there for several hours during the transfusion itself. H&H today was 5.4/19.8. Patient denies any chest pain. Iron studies significant for a TIBC of 522 and iron of 18. Review of Systems Denies fever or chills Denies blurry vision, otorrhea, rhinorrhea Denies sore throat and cough No chest pain, palpitations, shortness of breath No abdominal pain Denies constipation/diarrhea/nausea/vomiting Positive weakness, positive muscle pain No rashes Past Family Social History Past Medical History Plan deficiency anemia Hypothyroidism secondary to ablation for Graves' disease COPD Past Surgical History Laparotomy for ovarian cyst Reported Medications Reported Meds & Active Scripts Active Reported Advair Diskus Inh (Fluticasone-Salmeterol Inh) 250-50 Mcg/Blist Aer 1 Puff INH BID Rinse mouth after use. Proair Hfa 8.5 GM Inh (Albuterol Sulfate) 90 Mcg/Act Aer 2 Puff INH Q4HR PRN 108 mcg/actuation Naproxen Sodium 220 Mg Tab 220 Mg PO TID PRN Furosemide 40 Mg Tab 40 Mg PO DAILY Potassium Chloride ER (Potassium Chloride) 10 Meq Cap 10 Meq PO DAILY Omeprazole 40 Mg Cap 40 Mg PO DAILY Hydrochlorothiazide 25 Mg Tab 25 Mg PO DAILY Flexeril (Cyclobenzaprine HCl) 10 Mg Tab 10 Mg PO TID Levothyroxine (Levothyroxine Sodium) 200 Mcg Tab 200 Mcg PO DAILY Allergies: Coded Allergies: propylthiouracil (Unverified Allergy, Mild, 06/17/17) *MDRO Multi-Drug Resistant Organism (Verified Adverse Reaction, Unknown, 06/17/17) 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 Social History Smokes 4-5 cigarettes per day 30 years. Occasional alcohol. Endorses marijuana use. Denies other illicit drugs. Physical Exam Vital Signs Vital Signs Date Time Temp Pulse Resp B/P (MAP) Pulse Ox O2 Delivery O2 Flow Rate FiO2 06/17/17 15:09 74 17 137/64 (88) 100 Room Air 06/17/17 15:09 100 Room Air 06/17/17 13:30 98.6 88 20 137/64 (88) 100 Room Air Physical Exam GENERAL: Obese, pale, female sitting up in bed SKIN: No rashes, ecchymoses or lesions. Cool and dry. HEAD: Atraumatic. Normocephalic. No temporal or scalp tenderness. EYES: Pupils equal round and reactive. Extraocular motions intact. No scleral icterus. No injection or drainage. ENT: Nose without bleeding, purulent drainage or septal hematoma. Throat without erythema, tonsillar hypertrophy or exudate. Uvula midline. Airway patent. NECK: Trachea midline. No JVD or lymphadenopathy. Supple, nontender, no meningeal signs. CARDIOVASCULAR: Regular rate and rhythm without murmurs, gallops, or rubs. RESPIRATORY: Clear to auscultation without wheezes. Distant breath sounds. GASTROINTESTINAL: Abdomen soft, non-tender, nondistended. No hepato-splenomegaly , or palpable masses. No guarding. MUSCULOSKELETAL: Extremities without clubbing, cyanosis, or edema. No joint tenderness, effusion, or edema noted. No calf tenderness. Negative Homans sign bilaterally. NEUROLOGICAL: Awake and alert. Cranial nerves II through XII intact. Motor and sensory grossly within normal limits. Normal speech. Laboratory Laboratory Tests Test 06/17/17 14:56 White Blood Count 7.3 Red Blood Count 3.36 Hemoglobin 5.4 Hematocrit 19.8 Mean Corpuscular Volume 59.0 Mean Corpuscular Hemoglobin 16.0 Mean Corpuscular Hemoglobin Concent 27.1 Red Cell Distribution Width 20.0 Platelet Count 287 Mean Platelet Volume 8.6 Neutrophils (%) (Auto) 65.5 Lymphocytes (%) (Auto) 26.4 Monocytes (%) (Auto) 6.3 Eosinophils (%) (Auto) 0.3 Basophils (%) (Auto) 1.5 Neutrophils # (Auto) 4.8 Lymphocytes # (Auto) 1.9 Monocytes # (Auto) 0.5 Eosinophils # (Auto) 0.0 Basophils # (Auto) 0.1 CBC Comment DIFF FINAL Differential Comment Prothrombin Time 10.7 Prothromb Time International Ratio 1.0 Activated Partial Thromboplast Time 25.8 Blood Urea Nitrogen 12 Creatinine 1.15 Random Glucose 98 Total Protein 7.2 Albumin 3.6 Calcium Level 8.0 Alkaline Phosphatase 116 Aspartate Amino Transf (AST/SGOT) 17 Alanine Aminotransferase (ALT/SGPT) 21 Total Bilirubin 0.4 Sodium Level 139 Potassium Level 3.7 Chloride Level 105 Carbon Dioxide Level 27.9 Anion Gap 6 Estimat Glomerular Filtration Rate 52 Iron Level 18 Total Iron Binding Capacity 522 Percent Iron Saturation 3.4 Ferritin 3 Result Diagram: 06/17/17 1456 06/17/17 1456 Caprini VTE Risk Assessment Caprini VTE Risk Assessment: No/Low Risk (score <= 1) Caprini Risk Assessment Model Point Value = 1 Point Value = 2 Point Value = 3 Point Value = 5 Age 41-60 Minor surgery BMI > 25 kg/m2 Swollen legs Varicose veins or History of unexplained or recurrent spontaneous Oral contraceptives or hormone replacement Sepsis (< 1 month) Serious lung disease, including pneumonia (< 1 month) Abnormal pulmonary function Acute myocardial infarction Congestive heart failure (< 1 month) History of inflammatory bowel disease Medical patient at bed rest Age 61-74 Arthroscopic surgery Major open surgery (> 45 min) Laparoscopic surgery (> 45 min) Malignancy Confined to bed (> 72 hours) Immobilizing plaster cast Central venous access Age >= 75 History of VTE Family history of VTE Factor V Leiden Prothrombin [id number] Lupus anticoagulant Anticardiolipin antibodies Elevated serum homocysteine Heparin-induced thrombocytopenia Other congenital or acquired thrombophilia Stroke (< 1 month) Elective arthroplasty Hip, pelvis, or leg fracture Acute spinal cord injury (< 1 month) Prophylaxis Regimen Total Risk Factor Score Risk Level Prophylaxis Regimen 0-1 Low Early ambulation 2 Moderate Order ONE of the following: *Sequential Compression Device (SCD) *Heparin 5000 units SQ BID 3-4 Higher Order ONE of the following medications: *Heparin 5000 units SQ TID *Enoxaparin/Lovenox 40 mg SQ daily (WT < 150 kg, CrCl > 30 mL/min) *Enoxaparin/Lovenox 30 mg SQ daily (WT < 150 kg, CrCl > 10-29 mL/min) *Enoxaparin/Lovenox 30 mg SQ BID (WT < 150 kg, CrCl > 30 mL/min) AND/OR *Sequential Compression Device (SCD) 5 or more Highest Order ONE of the following medications: *Heparin 5000 units SQ TID (Preferred with Epidurals) *Enoxaparin/Lovenox 40 mg SQ daily (WT < 150 kg, CrCl > 30 mL/min) *Enoxaparin/Lovenox 30 mg SQ daily (WT < 150 kg, CrCl > 10-29 mL/min) *Enoxaparin/Lovenox 30 mg SQ BID (WT < 150 kg, CrCl > 30 mL/min) AND *Sequential Compression Device (SCD) Assessment and Plan Assessment and Plan 42-year-old female with past medical history significant for hypothyroidism and chronic iron deficiency anemia who presented to the emergency department for generalized malaise on anemia. 1. Acute iron deficiency anemia Iron study shows iron level 18, TIBC 522 iron saturation is 3.4% 3 units PRBCs ordered in the ED Patient has been skipping her routine iron infusions at her trial consultant's office Counseled patient as to the importance of keeping these appointments 2. Hypothyroidism Continue levothyroxine TSH pending given patient's symptoms of generalized malaise 3. Hypertension Continue home HCTZ and Lasix 4. GERD Continue PPI FEN Heart healthy diet Electrolytes: monitor and replete prn SCDs Kristi Thrasher MD Jun 17, 2017 16:28
[2017-06-17] MEDS ORDERED: LACTULOSE SYRUP 20 GM/30 ML CUP PO PRN (16:30)
[2017-06-17] MEDS ORDERED: MAGNESIUM HYDROXIDE SUSP 30 ML CUP PO PRN (16:30)
[2017-06-17] MEDS ORDERED: SODIUM CHLORIDE 0.9% FLUSH 10 ML FLUSH IV FLUSH PRN (16:30)
[2017-06-17] MEDS ORDERED: ACETAMINOPHEN 325 MG TAB PO PRN (16:30)
[2017-06-17] MEDS ORDERED: BISACODYL 10 MG SUPP RECTAL PRN (16:30)
[2017-06-17] MEDS ORDERED: SENNOSIDES 8.6 MG TAB PO PRN (16:30)
[2017-06-17] MEDS ORDERED: ONDANSETRON HCL 4 MG/2 ML VIAL IVP PRN (16:30)
[2017-06-17] MEDS ORDERED: NALOXONE HCL 0.4 MG/ML AMP IV PUSH PRN (16:30)
[2017-06-17 18:28] VITALS: BP 119/56; PULSE 76; RESP 16; TEMP 98.2; O2SAT 99
[2017-06-17 18:46] VITALS: BP 124/55; PULSE 78; RESP 16; TEMP 98.2; O2SAT 100
[2017-06-17 20:15] VITALS: BP 129/57; PULSE 80; RESP 18; TEMP 97.8; O2SAT 100
[2017-06-17] MEDS: BUDESONIDE-FORMOTEROL 160/4.5 MCG INHALER INH SCH (20:40)
[2017-06-17] MEDS: DOCUSATE SODIUM 50 MG/SENNA 8.6 MG TAB PO SCH (20:41)
[2017-06-17] MEDS: SODIUM CHLORIDE 0.9% FLUSH 10 ML FLUSH IV FLUSH SCH (21:00)
[2017-06-17] MEDS ORDERED: NON-FORMULARY DRUG (Fluticasone-Salmeterol Inh (Advair Diskus Inh) 1 PUFF) INH SCH (21:00)
[2017-06-17] MEDS ORDERED: CYCLOBENZAPRINE HCL 10 MG TAB PO ONE (22:00)
[2017-06-17 23:39] VITALS: BP 121/49; PULSE 85; TEMP 98.1; O2SAT 99
[2017-06-18] VITALS (12 sets, daily range): BP systolic 102–142; BP diastolic 51–68; PULSE 66–82; RESP 16–20; TEMP 96.7–98.1; O2SAT 93–100
[2017-06-18] MEDS: LEVOTHYROXINE SODIUM 200 MCG TAB PO SCH (06:00)
[2017-06-18] MEDS ORDERED: CYCLOBENZAPRINE HCL 10 MG TAB PO SCH (09:00)
[2017-06-18] MEDS ORDERED: NON-FORMULARY DRUG (Omeprazole 40 MG) PO SCH (09:00)
[2017-06-18] MEDS: POTASSIUM CHLORIDE 10 MEQ CAP PO SCH (09:05)
[2017-06-18] MEDS: PANTOPRAZOLE SOD 40 MG DELAYED RELEASE TAB PO SCH (09:06)
[2017-06-18] MEDS: SODIUM CHLORIDE 0.9% FLUSH 10 ML FLUSH IV FLUSH SCH ×2 (09:06→21:45)
[2017-06-18] MEDS: BUDESONIDE-FORMOTEROL 160/4.5 MCG INHALER INH SCH ×2 (09:06→21:00)
[2017-06-18] MEDS: CYCLOBENZAPRINE HCL 10 MG TAB PO PRN ×3 (09:08→21:46)
[2017-06-18] MEDS: DOCUSATE SODIUM 50 MG/SENNA 8.6 MG TAB PO SCH ×2 (09:19→21:00)
[2017-06-18] MEDS: HYDROCHLOROTHIAZIDE 25 MG TAB PO SCH (09:19)
[2017-06-18] MEDS: FUROSEMIDE 40 MG TAB PO SCH (09:19)
[2017-06-18 14:30] LABS: AUTOMATED NEUTROPHIL # 5.1 TH/MM3 (1.8-7.7); BASOPHIL # 0.1 TH/MM3 (0-0.2); BASOPHIL % 1.4 % (0.0-2.0); EOSINOPHIL % 0.1 % (0.0-4.0); HEMATOCRIT 24.3 % (35.0-46.0); HEMO FLAGS DIFF FINAL; LYMPHOCYTE # 1.2 TH/MM3 (1.0-4.8); MEAN CELL VOLUME 64.3 FL (80.0-100.0); MEAN CORPUSCULAR HEMOGLOBIN 19.5 PG (27.0-34.0); MEAN CORPUSCULAR HGB CONC 30.3 % (32.0-36.0); MONO % 5.2 % (0.0-8.0); NEUT % 75.3 % (16.0-70.0); PLATELET COUNT 223 TH/MM3 (150-450); RED BLOOD COUNT 3.78 MIL/MM3 (4.00-5.30); RED CELL DISTRIBUTION WIDTH 24.6 % (11.6-17.2); WHITE BLOOD COUNT 6.8 TH/MM3 (4.0-11.0)
--- NOTE | 2017-06-18 14:44 | HHI.PR ---
Subjective Remarks Patient seems to be in bed mood She wants to be discharged home Her was at the bedside She thing she should be okay after transfusion however I explained to her that being very low on iron stores will not help to produce red blood cells, and obviously patient is non-ion with her assistant commissioner regarding iron iv transfusion Objective Vitals Vital Signs Date Time Temp Pulse Resp B/P (MAP) Pulse Ox O2 Delivery O2 Flow Rate FiO2 06/18/17 08:19 98.0 80 20 117/68 (84) 98 06/18/17 08:00 73 06/18/17 05:12 68 06/18/17 03:48 98.0 71 16 104/55 98 06/18/17 03:22 98.1 69 16 125/66 98 06/18/17 00:15 98.1 71 18 102/51 98 06/17/17 23:39 98.1 85 121/49 99 06/17/17 20:15 97.8 80 18 129/57 (81) 100 06/17/17 18:46 98.2 78 16 124/55 100 06/17/17 18:28 98.2 76 16 119/56 99 06/17/17 17:38 06/17/17 15:09 74 17 137/64 (88) 100 Room Air 06/17/17 15:09 100 Room Air I/O 06/17/17 06/17/17 06/17/17 06/18/17 06/18/17 06/18/17 06:59 14:59 22:59 06:59 14:59 22:59 Intake Total 5 ml 3200 ml Balance 5 ml 3200 ml Intake Oral 2000 ml Packed Cells 1200 ml Blood Product IV Normal Saline Flush 5 ml # Voids 1 7 Result Diagram: 06/18/17 1400 06/17/17 1456 Objective Remarks GENERAL: This is morbidly obese well-developed patient, in no apparent distress. SKIN: No rashes, warm and dry HEAD: Atraumatic. Normocephalic. EYES: Pupils equal round and reactive. Some exophthalmos from previous thyroid disorder ENT: Nose without bleeding, or drainage, Airway patent. NECK: Trachea midline. Supple CARDIOVASCULAR: Regular rate and rhythm without murmurs, gallops, or rubs. RESPIRATORY: Fair air entry bilaterally. No wheezes, rales, or rhonchi. GASTROINTESTINAL: Abdomen soft, non-tender, nondistended. Positive bowel sounds MUSCULOSKELETAL: Extremities without clubbing, cyanosis, or edema. Pedal pulses appreciated NEUROLOGICAL: Awake and alert. Moves all extremity. Normal speech.no focal neurological deficit A/P Assessment and Plan 42-year-old female with past medical history significant for hypothyroidism and chronic iron deficiency anemia who presented to the emergency department for generalized malaise on anemia. 1. Acute iron deficiency anemia Iron study shows iron level 18, TIBC 522 iron saturation is 3.4% 3 units PRBCs ordered in the ED Patient has been skipping her routine iron infusions at her assistant commissioner's office Lengthy discussion with the patient advising about the importance of replenishing iron stores in the body, I will consult her assistant commissioner for possible doing transfusion while in hospital 2. Hypothyroidism Continue levothyroxine TSH pending given patient's symptoms of generalized malaise 3. Hypertension Continue home HCTZ and Lasix 4. GERD Continue PPI Sher Hoang MD Jun 18, 2017 14:44
[2017-06-18 15:02] LABS: BICARBONATE 26.6 MEQ/L (21.0-32.0); POTASSIUM 4.2 MEQ/L (3.5-5.1)
[2017-06-18 21:38] LABS: HEMATOCRIT 24.6 % (35.0-46.0); REVIEW FLAG FINAL
[2017-06-19] VITALS (7 sets, daily range): BP systolic 100–126; BP diastolic 53–70; PULSE 65–73; RESP 17–18; TEMP 95.6–97.7; O2SAT 93–98
[2017-06-19] MEDS: LEVOTHYROXINE SODIUM 200 MCG TAB PO SCH (05:57)
--- NOTE | 2017-06-19 07:00 | MB ---
cc: BREN ANTHONY M.D. DATE OF CONSULTATION 06/18/2017 REASON FOR CONSULTATION Consult requested by [facility] hospitalist for evaluation of iron deficiency anemia. HISTORY OF PRESENT ILLNESS Elisa is a 42-year-old female. She has a history of morbid obesity and polycystic ovarian syndrome. She has a history of severe menorrhagia. She states that she bleeds for 3 weeks out of 4 weeks when she gets her periods. She was previously evaluated by a weigher bulker who did not recommend any surgical intervention due to concern for postmenopausal complications. The patient states that she has switched to another weigher bulker and she has an appointment with him sometime next month. She is under the care of collator hand, Dr. Pawan Waddell. The patient states that Dr. Waddell gives her IV iron maybe every 6 months or so. However, she has been noncompliant. She knew that she needed to see him soon. She presented to the emergency room complaining of extreme weakness, tiredness, fatigue with dyspnea on exertion. She knew that she would required blood transfusion and she would be very anemic due to the heavy menses. The patient came into the emergency room yesterday. The CBC showed a white count of 7.3, hemoglobin 5.4, hematocrit 19.8, platelet count is 287. The patient has received blood transfusion. So far she had 3 units and the hemoglobin has improved to 7.4. Iron studies were done which shows severe iron deficiency. The serum ferritin is only 3, iron saturation is low at 3.4. Serum iron is low at 18, TIBC is normal at 522. She has classic iron deficiency anemia. I have been asked to see the patient for the iron deficiency anemia and recommendation for IV iron infusion. The patient states that she wants to go home. She has a collator hand, Dr. Waddell, as an outpatient who usually gives her IV iron and she can follow up with him. However, the admitting doctor decided that the patient should stay in the hospital until she gets the IV iron infusion. She denies any bleeding from any other place. She wanted to have hysterectomy but her weigher bulker does not agree with her, therefore she has switched to another weigher bulker. The rest of the review of systems is negative. PAST MEDICAL HISTORY 1. Morbid obesity. 2. COPD. 3. Graves disease status post radioactive iodine treatment and now she is hypothyroid. She has Graves disease exophthalmos. 4. History of severe iron deficiency anemia from severe menorrhagia. 5. Polycystic ovarian syndrome. 6. Morbid obesity. PAST SURGICAL HISTORY Laparotomy for ovarian cyst. ALLERGIES PROPIOTHIOURACIL. MEDICATIONS 1. Pro-Air. 2. Naprosyn. 3. Lasix. 4. Potassium. 5. Omeprazole. 6. Hydrochlorothiazide. 7. Flexeril. 8. Levothyroxine. FAMILY HISTORY Noncontributory. SOCIAL HISTORY The patient smokes four to five cigarettes a day for the last 30 years. Occasionally drinks alcohol. She also does marijuana. PHYSICAL EXAMINATION GENERAL: This is a well-developed, morbidly obese white female in no apparent distress. VITAL SIGNS: Temperature 97.4, heart rate is 73, blood pressure 142/64, O2 saturation 92% on room air. HEENT: Graves exophthalmos noted. No oral lesions are noted. NECK: No lymphadenopathy. LUNGS: Clear. No wheezing, rhonchi or rales. HEART: Regular rate and rhythm. ABDOMEN: Soft, distended due to the obesity, unable to feel for the liver and spleen. EXTREMITIES: No pedal edema. NEUROLOGY: Awake, alert, oriented x 3. SKIN: No significant lesions are noted. ASSESSMENT 1. Severe iron deficiency anemia due to prolonged severe menorrhagia. 2. Menorrhagia from polycystic ovarian syndrome. 3. Polycystic ovarian syndrome. 4. History of iron deficiency and has been getting iron infusion through collator hand, Dr. Waddell. PLAN I have reviewed her available records and I had an extensive discussion with the patient regarding her severe anemia which is due to the iron deficiency. We discussed that the iron deficiency is a symptom/sign and not a disease. We need to find the cause of the iron deficiency. In her case the source of iron deficiency is heavy menstrual periods. Therefore my recommendation is to get a [facility] consult to discuss with the patient regarding the polycystic ovarian syndrome as well as possible partial hysterectomy. She is 42 years old and she has five children. She does not desire any further babies. She is willing to have a partial hysterectomy so that she gets relief from the heavy menses. She has made an appointment with a new weigher bulker and her appointment is for next month sometime. I have placed a consult for [facility] to see her while she is in the hospital. I will give her iron infusion tomorrow morning. The patient states that she usually gets Venofer with Dr. Waddell. I have placed an order for her to get Venofer 200 mg IV to be given over one hour. CBC will be repeated tomorrow. If the hemoglobin is still less than 8, then my recommendation is to give her one more unit of blood transfusion prior to discharging her to home. The patient will be followed by her collator hand, Dr. Waddell, upon discharge. Thank you for asking my opinion. Luisa Anthony MD /FERMIN /12:12 AM /6:50 AM SVEN
--- NOTE | 2017-06-19 07:59 | HHI.PR ---
Subjective Remarks He feels better today. Still with vaginal bleeding she changed pads today. No nausea or vomiting or diarrhea or constipation. Denies chest pain or shortness of breath. Feels comfortable to go home today. Plan to transfuse 1 unit of blood and then patient can be discharged for follow-up as outpatient with PCP in his doctors. Objective Vitals Vital Signs Date Time Temp Pulse Resp B/P (MAP) Pulse Ox O2 Delivery O2 Flow Rate FiO2 06/19/17 07:05 Room Air 06/19/17 04:40 96.8 67 18 115/70 (85) 98 06/19/17 00:45 97.7 65 18 113/54 (73) 95 06/18/17 20:40 96.7 72 17 118/68 (85) 100 06/18/17 20:38 82 06/18/17 16:50 97.4 73 18 142/64 (90) 93 06/18/17 16:36 97.5 71 20 119/57 (77) 96 06/18/17 16:23 67 06/18/17 12:00 66 06/18/17 08:19 98.0 80 20 117/68 (84) 98 06/18/17 08:00 73 I/O 06/18/17 06/18/17 06/18/17 06/19/17 06/19/17 06/19/17 07:00 15:00 23:00 07:00 15:00 23:00 Intake Total 3200 ml 480 ml 360 ml Balance 3200 ml 480 ml 360 ml Intake Oral 2000 ml 480 ml 360 ml Packed Cells 1200 ml # Voids 7 2 4 # Bowel Movements 1 0 Result Diagram: 06/18/17202506/18/17 1400 Imaging Last Impressions Pelvis Ultrasound 06/19/17 0000 Signed Impressions: Service Date/Time: Monday, June 19, 2017 10:06 - CONCLUSION: Questionable mass in the uterus, possible leiomyoma. Ovaries have a normal appearance with prominent functional cyst on the left ovary. Landon Fuchs MD Objective Remarks GENERAL: This is morbidly obese well-developed patient, in no apparent distress. EYES: Pupils equal round and reactive. Minimal exophthalmos from previous thyroid disorder CARDIOVASCULAR: Regular rate and rhythm without murmurs, gallops, or rubs. RESPIRATORY: Fair air entry bilaterally. No wheezes, rales, or rhonchi. GASTROINTESTINAL: Abdomen soft, non-tender, nondistended. Positive bowel sounds MUSCULOSKELETAL: Extremities without clubbing, cyanosis, or edema. Pedal pulses appreciated NEUROLOGICAL: Awake and alert. Moves all extremity. Normal speech.no focal neurological deficit A/P Assessment and Plan 42-year-old female with past medical history significant for hypothyroidism and chronic iron deficiency anemia who presented to the emergency department for generalized malaise on anemia. Acute iron deficiency anemia Menometrorrhagia Iron study shows iron level 18, TIBC 522 iron saturation is 3.4% Received total of 4 units PRBCs Patient has been skipping her routine iron infusions at her fire regulator's office. Advice compliance. Consult her fire regulator , appreciate recommendations. Transfuse if HGB < 8 Received Venofer infusion Consult professor of environmental studies, seen by Dr Carmen received one doze tranexamic acid, ok to DC to follow up as OP with professor of environmental studies H/o Graves disease post ablation now with Hypothyroidism Continue levothyroxine TSH normal Hypertension Continue home HCTZ and Lasix. Monitor VS. GERD Continue PPI DVT ppx ambulation DC plan Plan to transfuse 1 unit of blood and then patient can be discharged for follow-up as outpatient with PCP in his doctors. Paula Velázquez MD Jun 19, 2017 07:59
[2017-06-19] MEDS: PANTOPRAZOLE SOD 40 MG DELAYED RELEASE TAB PO SCH (08:22)
[2017-06-19] MEDS: POTASSIUM CHLORIDE 10 MEQ CAP PO SCH (08:23)
[2017-06-19] MEDS: DOCUSATE SODIUM 50 MG/SENNA 8.6 MG TAB PO SCH (08:23)
[2017-06-19] MEDS: HYDROCHLOROTHIAZIDE 25 MG TAB PO SCH (08:23)
[2017-06-19] MEDS: BUDESONIDE-FORMOTEROL 160/4.5 MCG INHALER INH SCH (08:23)
[2017-06-19] MEDS: FUROSEMIDE 40 MG TAB PO SCH (08:23)
[2017-06-19] MEDS: CYCLOBENZAPRINE HCL 10 MG TAB PO PRN (08:32)
[2017-06-19] MEDS ORDERED: IRON SUCROSE 100 MG/5 ML VIAL IV PUSH ONE (09:00)
[2017-06-19] MEDS ORDERED: IRON SUCROSE INJ 200 MG in SODIUM CHLORIDE 0.9% INJ 100 ML IV ONE (09:00)
[2017-06-19] MEDS: SODIUM CHLORIDE 0.9% FLUSH 10 ML FLUSH IV FLUSH SCH (09:00)
[2017-06-19] MEDS ORDERED: TRANEXAMIC ACID 650 MG TAB PO ONE (09:45)
--- NOTE | 2017-06-19 09:47 | PD.CONS ---
HPI Chief Complaint Uterine bleeding and anemia pelvic pain Date Seen: Jun 19, 2017 Time Seen: 09:00 Travel History International Travel<30 Days: No Contact w/Intl Traveler<30Days: No Known Affected Area: No History of Present Illness HPI Patient is 42-year-old white female G0 currently bleeding vaginally and has had a long history of abnormal uterine bleeding. She at times bleed 3 weeks out of 4 weeks a month and was done this for years on and off. She has a history of polycystic ovarian syndrome chronic anovulation syndrome and has never been able to get never been able to control her periods she's tried control pills she just did not like the side effects and they made her gain weight and get fat . She was offered Depo-Provera which she research that refused to take it. She really wanted to have the hysterectomy and ovaries out because she's had a history of large cysts and small cysts and painful cysts and ruptured cyst for her whole adult life, she has dyspareunia and has had this essentially long-term as well. Both any questions the patient completely she really hasn't had that much done for this she never had a surgery a laparoscope a D&C she's never been treated long-term with the metformin or any other agents really. History Past Medical History Narrative Medical The patient was at one hyperthyroid and has impressive exophthalmos, she had radioactive iodine treatment parred out her thyroid and she takes thyroid replacement She has chronic obesity, PCO S, and chronic anovulation syndrome long-term with infertility Obstetric History Obstetric History Has never been able to get and did try for some time years ago but gave up and was told by doctors that she would "never get " Social History Alcohol Use: No Tobacco Use: Yes Substance Abuse: No Allergies-Medications (Allergen,Severity, Reaction): Coded Allergies: propylthiouracil (Unverified Allergy, Mild, 06/17/17) *MDRO Multi-Drug Resistant Organism (Verified Adverse Reaction, Unknown, 06/17/17) MRSA (leg) - 10/12/2008 Home Meds Reported Medications Fluticasone-Salmeterol Inh (Advair Diskus Inh) 250-50 Mcg/Blist Aer, 1 PUFF INH BID, #1 INHALER 0 Refills Rinse mouth after use. 06/17/17 Albuterol 8.5 GM Inh (Proair Hfa 8.5 GM Inh) 90 Mcg/Act Aer, 2 PUFF INH Q4HR Y for SHORTNESS OF BREATH, #1 INHALER 0 Refills 108 mcg/actuation 06/17/17 Naproxen Sodium (Naproxen Sodium) 220 Mg Tab, 220 MG PO TID Y for Pain Management, TAB 0 Refills 06/17/17 Furosemide (Furosemide) 40 Mg Tab, 40 MG PO DAILY, #60 TAB 0 Refills 06/17/17 Potassium Chloride ER (Potassium Chloride ER) 10 Meq Cap, 10 MEQ PO DAILY for Electrolyte Replacement, #30 CAP 0 Refills 06/17/17 Omeprazole (Omeprazole) 40 Mg Cap, 40 MG PO DAILY, #30 CAP 0 Refills 11/29/16 Hydrochlorothiazide (Hydrochlorothiazide) 25 Mg Tab, 25 MG PO DAILY, #30 TAB 0 Refills 11/29/16 Cyclobenzaprine (Flexeril) 10 Mg Tab, 10 MG PO TID for Muscle Spasm, #90 TAB 0 Refills 11/29/16 Levothyroxine (Levothyroxine) 200 Mcg Tab, 200 MCG PO DAILY for Thyroid, #30 TAB 0 Refills 10/16/16 Discontinued Scripts Medroxyprogesterone Inj (Depo-Provera Inj) 150 Mg/Ml Inj, 150 MG IM Q90D Y for BLEEDING, #3 VIAL 0 Refills Prov:Jorge Dunn MD 10/16/16 Review of Systems General / Constitutional: No: Fever, Weight Gain, Chills, Other Eyes: No: Diploplia, Blurred Vision, Visual changes, Pain, Photophobia HENT: No: Headaches, Vertigo, Lightheadedness Cardiovascular: No: Irregular Rhythm, Chest Pain or Discomfort, Palpitations, Tachycardia, Syncope, Varicosities, Edema, Cyanosis Respiratory: No: Cough, Short of Breath, Other Gastrointestinal: Abdominal Pain, No: Nausea, Vomiting, Diarrhea Genitourinary: Pelvic Pain, Dyspareunia, Menorrhagia, Vaginal Bleeding, No: Decreased Urinary Output, Oliguria Musculoskeletal: No: Limited ROM, Weakness, Cramping, Edema, Pain Skin: No Rash, No Itching, No Dryness, No Lumps, No Change in Pigmentation, No Change in Nails, No Alopecia, No Lesions Neurologic: No: Weakness, Dizziness, Syncope, Focal Abnormalities, Coordination Problem, Headache, Slurred Speech, Seizures Psychiatric: No: Depression, Suicidal Ideations, Homicidal Ideation Endocrine: No: Heat Intolerance, Cold Intolerance, Polydipsia, Polyuria, Other Physical Exam Vital Signs Date Time Temp Pulse Resp B/P (MAP) Pulse Ox O2 Delivery O2 Flow Rate FiO2 06/19/17 08:00 96.3 69 18 100/53 (69) 97 06/19/17 07:05 Room Air 06/19/17 04:40 96.8 67 18 115/70 (85) 98 06/19/17 00:45 97.7 65 18 113/54 (73) 95 06/18/17 20:40 96.7 72 17 118/68 (85) 100 06/18/17 20:38 82 06/18/17 16:50 97.4 73 18 142/64 (90) 93 06/18/17 16:36 97.5 71 20 119/57 (77) 96 06/18/17 16:23 67 06/18/17 12:00 66 Narrative GENERAL: Well-nourished, obese patient. SKIN: Warm and dry. HEAD: Normocephalic and atraumatic. EYES: No scleral icterus. No injection or drainage. ENT: No nasal drainage noted. Mucous membranes pink. Airway patent. NECK: Supple, trachea midline. No JVD. CARDIOVASCULAR: Regular rate and rhythm without murmurs, gallops, or rubs. RESPIRATORY: Breath sounds equal bilaterally. No accessory muscle use. BREASTS: Bilateral exam showed no masses , no retractions, no nipple discharge. ABDOMEN/ abdomen is enlarged nondistended tender in her right lower quadrant in less tender in the other quadrants with no rebound no guarding GENITOURINARY: External Genitalia: intact and normal in appearance BUS glands: [-] Cervix: [Positive cervical motion tenderness-] Uterus is anterior of hard to palpate due to her size 1-2+ tender with no adnexal masses. Once again or size compromises that evaluation EXTREMITIES: No cyanosis or edema. BACK: Nontender without obvious deformity. No CVA tenderness. NEUROLOGICAL: Awake and alert. Motor and sensory grossly within normal limits. Five out of 5 muscle strength in all muscle groups. Normal speech. Data Data Orders Orders Hgb & Hct (06/18/17 10:05) Equip, Isolation Cart (06/18/17 10:39) Consult Hematology (06/18/17 ) Admit To Inpatient (06/18/17 ) Inpatient Certification (06/18/17 ) (Hub Use Only)Inp Phy Cons/Ref (06/18/17 ) Patient Transfer (06/18/17 ) Mrsa Pcr Surveillance (06/18/17 15:50) Consult Gynecology (06/18/17 ) (Hub Use Only)Inp Phy Cons/Ref (06/18/17 ) Iron Sucrose Inj (Venofer Inj) (06/19/17 09:00) Physician Name Changes (06/19/17 ) Vascular Access Team Consult/P PRN (06/19/17 09:23) Vascular Poc Ultrasound (06/19/17 ) Us Pelvis Comp W Transvaginal (06/19/17 ) Tranexamic Acid (Lysteda) (06/19/17 09:45) Labs Laboratory Tests Test 06/18/17 12:05 06/18/17 14:00 06/18/17 20:26 Nasal Screen MRSA (PCR) MRSA NOT DETECTED White Blood Count 6.8 Red Blood Count 3.78 Hemoglobin 7.4 7.3 Hematocrit 24.3 24.6 Mean Corpuscular Volume 64.3 Mean Corpuscular Hemoglobin 19.5 Mean Corpuscular Hemoglobin Concent 30.3 Red Cell Distribution Width 24.6 Platelet Count 223 Mean Platelet Volume 8.4 Neutrophils (%) (Auto) 75.3 Lymphocytes (%) (Auto) 18.0 Monocytes (%) (Auto) 5.2 Eosinophils (%) (Auto) 0.1 Basophils (%) (Auto) 1.4 Neutrophils # (Auto) 5.1 Lymphocytes # (Auto) 1.2 Monocytes # (Auto) 0.4 Eosinophils # (Auto) 0.0 Basophils # (Auto) 0.1 CBC Comment DIFF FINAL Differential Comment Blood Urea Nitrogen 11 Creatinine 0.85 Random Glucose 109 Calcium Level 8.5 Sodium Level 137 Potassium Level 4.2 Chloride Level 105 Carbon Dioxide Level 26.6 Anion Gap 5 Estimat Glomerular Filtration Rate 74 MDM Interpretation(s) Patient is a 42-year-old white female G0 with chronic anovulation syndrome PCO S morbid obesity, his functional uterine bleeding with resultant chronic anemia with hemoglobin generally in the 7 range of time but she is coming to the hospital with a hemoglobin of 5 and has received 3 units of blood. And is getting an iron infusion as well. We discussed the patient's bleeding issues and initially she just wanted a hysterectomy have all out but I told her that that was not to be the first step and that she would likely need a conservative management as she did not want to take hormones but she may be a good candidate for a Mirena IUD or another levonorgestrel secreting intrauterine system that could render her amenorrheic or with minimal bleeding. Also the patient is indicated have an endometrial biopsy due to her size and chronic anovulation and hyperestrogenic state puts her at increased risk for endometrial cancer. So the endometrial histology is a very good idea and possibly same time D&C ablation to render once again near amenorrheic long-term, I gave the patient the Mirena IUD and ablation ideas written down on a piece of paper says she could take those to her [employer] doctor in [place] that she is just starting to see in the next month and to discuss those issues Plan Her to get an ultrasound today to check the and uterine anatomy and adnexal anatomy and endometrial thickness. Also had 1 dose of transexemic acid at 1300 mg 1 time by mouth. And instruments above she needs to plan to discuss treatment options with her [employer] in [place] as soon as she can. Admitting diagnosis: severe anemia. Diagnosis: PCOS ,DUB, anemia Brian Carmen II, MD Jun 19, 2017 09:47
[2017-06-19] MEDS ORDERED: diphenhydrAMINE HCL 25 MG CAP PO PRN (11:00)
[2017-06-19] MEDS ORDERED: ACETAMINOPHEN 325 MG TAB PO PRN (11:00)
[2017-06-19] MEDS ORDERED: SODIUM CHLOR 0.9% 250 ML INJ 250 ML IV ONE (11:00)
--- NOTE | 2017-06-19 11:04 | PD.ONC.PN ---
Subjective Subjective Remarks Afebrile Pt hoping to go home today Currently tolerating iron transfusion Saw roof foreman earlier this am Objective Data Date Time Temp Pulse Resp B/P (MAP) Pulse Ox O2 Delivery O2 Flow Rate FiO2 06/19/17 08:00 96.3 69 18 100/53 (69) 97 06/19/17 07:05 Room Air 06/19/17 04:40 96.8 67 18 115/70 (85) 98 06/19/17 00:45 97.7 65 18 113/54 (73) 95 06/18/17 20:40 96.7 72 17 118/68 (85) 100 06/18/17 20:38 82 06/18/17 16:50 97.4 73 18 142/64 (90) 93 06/18/17 16:36 97.5 71 20 119/57 (77) 96 06/18/17 16:23 67 06/18/17 12:00 66 06/19/17 06/19/17 06/19/17 07:00 15:00 23:00 Intake Total 360 ml Balance 360 ml Result Diagram: 06/18/17202506/18/17 1400 Laboratory Results Laboratory Tests Test 06/18/17 12:05 06/18/17 14:00 06/18/17 20:26 Nasal Screen MRSA (PCR) MRSA NOT DETECTED White Blood Count 6.8 TH/MM3 Red Blood Count 3.78 MIL/MM3 Hemoglobin 7.4 GM/DL 7.3 GM/DL Hematocrit 24.3 % 24.6 % Mean Corpuscular Volume 64.3 FL Mean Corpuscular Hemoglobin 19.5 PG Mean Corpuscular Hemoglobin Concent 30.3 % Red Cell Distribution Width 24.6 % Platelet Count 223 TH/MM3 Mean Platelet Volume 8.4 FL Neutrophils (%) (Auto) 75.3 % Lymphocytes (%) (Auto) 18.0 % Monocytes (%) (Auto) 5.2 % Eosinophils (%) (Auto) 0.1 % Basophils (%) (Auto) 1.4 % Neutrophils # (Auto) 5.1 TH/MM3 Lymphocytes # (Auto) 1.2 TH/MM3 Monocytes # (Auto) 0.4 TH/MM3 Eosinophils # (Auto) 0.0 TH/MM3 Basophils # (Auto) 0.1 TH/MM3 CBC Comment DIFF FINAL Differential Comment Blood Urea Nitrogen 11 MG/DL Creatinine 0.85 MG/DL Random Glucose 109 MG/DL Calcium Level 8.5 MG/DL Sodium Level 137 MEQ/L Potassium Level 4.2 MEQ/L Chloride Level 105 MEQ/L Carbon Dioxide Level 26.6 MEQ/L Anion Gap 5 MEQ/L Estimat Glomerular Filtration Rate 74 ML/MIN Administered Medications Medications (Trade) Dose Ordered Sig/Shadia Route PRN Reason Start Time Stop Time Status Last Admin Dose Admin Levothyroxine Sodium (Synthroid) 200 mcg DAILY@0600 PO 06/18/17 06:00 06/19/17 05:57 Potassium Chloride (KCl) 10 meq DAILY PO 06/18/17 09:00 06/19/17 08:23 Sodium Chloride (NS Flush) 2 ml BID IV FLUSH 06/17/17 21:00 06/19/17 09:00 Pantoprazole Sodium (Protonix) 40 mg DAILY PO 06/18/17 09:00 06/19/17 08:22 Budesonide/ Formoterol Fumarate (Symbicort 160-4.5 Inh) 2 puff BID INH 06/17/17 21:00 06/18/17 09:06 Cyclobenzaprine HCl (Flexeril) 10 mg TID PRN PO muscle spasm 06/18/17 09:00 06/19/17 08:32 Objective Remarks GENERAL: Obese middle-aged female resting in bed talking on the phone in no acute distress SKIN: Warm and dry. HEAD: Normocephalic. EYES: Exophthalmus. No injection or drainage. NECK: Supple, trachea midline. No JVD or lymphadenopathy. CARDIOVASCULAR: Regular rate and rhythm without murmurs. RESPIRATORY: Breath sounds equal bilaterally. No accessory muscle use. GASTROINTESTINAL: Abdomen soft, non-tender, nondistended. EXTREMITIES: No cyanosis, or edema. MUSCULOSKELETAL: Adequate muscle tone. NEUROLOGICAL: No obvious focal deficit. Awake, alert, and oriented x3. Assessment/Plan Problem List: (1) Iron deficiency anemia ICD Codes: D50.9 - Iron deficiency anemia Status: Acute Plan: 06/19/17: Repeat hemoglobin last night was 7.3. Will give 1 unit packed red blood cells today prior to discharge. Patient was encouraged to follow-up with her head of academic technology as an outpatient. -- Patient with severe menorrhagia -- Getting 200 mg of iron sucrose -- Would be ideal for a partial hysterectomy; gynecology consulted for recommendations -- She is under the care of Dr. Waddell from outpatient basis but is noncompliant with following up for iron/ transfusion. Assessment 42-year-old female with history of iron deficiency anemia related to severe menorrhagia admitted for hemoglobin of 5.4. Attending Statement The exam, history, and the medical decision-making described in the above note were completed with the assistance of the mid-level provider. I reviewed and agree with the findings presented. I attest that I had a [id number] encounter with the patient on the same day, and personally performed and documented my assessment and findings in the medical record. Patient wants to go home Receiving iron infusion Patient was evaluated by roof foreman. I did speak to the roof foreman. He has recommended Anna IUD Or Endometrial ablation to stop excessive Endometrial bleeding. Patient will be followed by the roof foreman as an outpatient Okay to discharge today She will be followed by her head of academic technology Leslie Fabian Jun 19, 2017 11:04 Bethanie Anthony MD Jun 20, 2017 01:22
[2017-06-19] MEDS ORDERED: FERR325T18 PO (11:36)
--- NOTE | 2017-06-19 11:37 | HHI.DS ---
Discharge Summary Admission Date Jun 18, 2017 at 14:08 Discharge Date: Jun 19, 2017 Admitting Diagnosis severe anemia. (1) Menometrorrhagia ICD Code: N92.1 - Excessive and frequent menstruation with irregular cycle (2) Iron deficiency anemia ICD Code: D50.9 - Iron deficiency anemia Status: Acute (3) GERD (gastroesophageal reflux disease) ICD Code: K21.9 - Gastroesophageal reflux disease Status: Acute (4) Hypothyroid ICD Code: E03.9 - Hypothyroidism Status: Acute (5) Adnexal cyst ICD Code: N94.9 - Adnexal cyst Status: Acute (6) Hypothyroidism ICD Code: E03.9 - Hypothyroidism, unspecified Status: Acute (7) Anemia ICD Code: D64.9 - Anemia, unspecified Status: Acute Procedures none Brief History - From Admission 42-year-old female with a past medical history significant for iron deficiency anemia and hypothyroidism presents to the emergency department with generalized malaise, weakness, dizziness and shortness of breath. The patient states she knew that her hemoglobin was low and that it was likely time for a blood transfusion. She has a wire fence builder, Dr. Canchola, in [facility] who monitors her and has her on IV iron transfusions. The patient reports she has not been getting her iron transfusions because it is too much of a strain on her to make it to the office and to sit there for several hours during the transfusion itself. H&H today was 5.4/19.8. Patient denies any chest pain. Iron studies significant for a TIBC of 522 and iron of 18. CBC/BMP: 06/18/17202506/18/17 1400 Significant Findings Laboratory Tests Test 06/17/17 14:56 06/18/17 12:05 06/18/17 14:00 06/18/17 20:26 Red Blood Count 3.36 MIL/MM3 (4.00-5.30) 3.78 MIL/MM3 (4.00-5.30) Hemoglobin 5.4 GM/DL (11.6-15.3) 7.4 GM/DL (11.6-15.3) 7.3 GM/DL (11.6-15.3) Hematocrit 19.8 % (35.0-46.0) 24.3 % (35.0-46.0) 24.6 % (35.0-46.0) Mean Corpuscular Volume 59.0 FL (80.0-100.0) 64.3 FL (80.0-100.0) Mean Corpuscular Hemoglobin 16.0 PG (27.0-34.0) 19.5 PG (27.0-34.0) Mean Corpuscular Hemoglobin Concent 27.1 % (32.0-36.0) 30.3 % (32.0-36.0) Red Cell Distribution Width 20.0 % (11.6-17.2) 24.6 % (11.6-17.2) Creatinine 1.15 MG/DL (0.50-1.00) Calcium Level 8.0 MG/DL (8.5-10.1) Estimat Glomerular Filtration Rate 52 ML/MIN (>89) 74 ML/MIN (>89) Iron Level 18 MCG/DL (50-170) Total Iron Binding Capacity 522 MCG/DL (250-450) Percent Iron Saturation 3.4 % (20-50) Ferritin 3 NG/ML (8-252) Neutrophils (%) (Auto) 75.3 % (16.0-70.0) Random Glucose 109 MG/DL (74-106) Imaging Last Impressions Pelvis Ultrasound 06/19/17 0000 Signed Impressions: Service Date/Time: Monday, June 19, 2017 10:06 - CONCLUSION: Questionable mass in the uterus, possible leiomyoma. Ovaries have a normal appearance with prominent functional cyst on the left ovary. Landon Fuchs MD PE at Discharge GENERAL: This is morbidly obese well-developed patient, in no apparent distress. EYES: Pupils equal round and reactive. Minimal exophthalmos from previous thyroid disorder CARDIOVASCULAR: Regular rate and rhythm without murmurs, gallops, or rubs. RESPIRATORY: Fair air entry bilaterally. No wheezes, rales, or rhonchi. GASTROINTESTINAL: Abdomen soft, non-tender, nondistended. Positive bowel sounds MUSCULOSKELETAL: Extremities without clubbing, cyanosis, or edema. Pedal pulses appreciated NEUROLOGICAL: Awake and alert. Moves all extremity. Normal speech.no focal neurological deficit Hospital Course 42-year-old female with past medical history significant for hypothyroidism and chronic iron deficiency anemia who presented to the emergency department for generalized malaise on anemia. Acute iron deficiency anemia Menometrorrhagia Iron study shows iron level 18, TIBC 522 iron saturation is 3.4% Received total of 4 units PRBCs Patient has been skipping her routine iron infusions at her wire fence builder's office. Advice compliance. Consult her wire fence builder , appreciate recommendations. Transfuse if HGB < 8 Received Venofer infusion Consult naturopathic physician, seen by Dr Carmen received one doze tranexamic acid, ok to DC to follow up as OP with naturopathic physician H/o Graves disease post ablation now with Hypothyroidism Continue levothyroxine TSH normal Hypertension Continue home HCTZ and Lasix. Monitor VS. GERD Continue PPI DVT ppx ambulation DC plan Plan to transfuse 1 unit of blood and then patient can be discharged for follow-up as outpatient with PCP in his doctors. Pt Condition on Discharge: Stable Discharge Disposition: Discharge Home Discharge Time: > 30 minutes Discharge Instructions DIET: Follow Instructions for: As Tolerated, No Restrictions Activities you can perform: Regular-No Restrictions Follow up Referrals: REQUISITION APPROVER - 3-5 Days with Brian Carmen II, MD Oncology/Hematology - 3-5 Days with Bethanie Anthony MD PCP Follow-up - 2-3 Days New Medications: Ferrous Sulfate (Ferrous Sulfate) 325 Mg (65 Mg Iron) Tablet 325 MG PO TIDPC for Nutritional Supplement, #90 TAB 0 Refills Continued Medications: Albuterol 8.5 GM Inh (Proair Hfa 8.5 GM Inh) 90 Mcg/Act Aer 2 PUFF INH Q4HR PRN for SHORTNESS OF BREATH, #1 INHALER 0 Refills 108 mcg/actuation Cyclobenzaprine (Flexeril) 10 Mg Tab 10 MG PO TID for Muscle Spasm, #90 TAB 0 Refills Fluticasone-Salmeterol Inh (Advair Diskus Inh) 250-50 Mcg/Blist Aer 1 PUFF INH BID, #1 INHALER 0 Refills Rinse mouth after use. Furosemide (Furosemide) 40 Mg Tab 40 MG PO DAILY, #60 TAB 0 Refills Hydrochlorothiazide (Hydrochlorothiazide) 25 Mg Tab 25 MG PO DAILY, #30 TAB 0 Refills Levothyroxine (Levothyroxine) 200 Mcg Tab 200 MCG PO DAILY for Thyroid, #30 TAB 0 Refills Omeprazole (Omeprazole) 40 Mg Cap 40 MG PO DAILY, #30 CAP 0 Refills Potassium Chloride ER (Potassium Chloride ER) 10 Meq Cap 10 MEQ PO DAILY for Electrolyte Replacement, #30 CAP 0 Refills Discontinued Medications: Naproxen Sodium (Naproxen Sodium) 220 Mg Tab 220 MG PO TID PRN for Pain Management, TAB 0 Refills Paula Velázquez MD Jun 19, 2017 11:37
--- NOTE | 2017-06-19 11:46 | RADRPT ---
EXAM DATE/TIME: 06/19/2017 10:06 [facility] COMPARISON: US PELVIS COMP W/TRANSVAGINAL, April 13, 2013, 20:32. US PELVIS COMP W/TRANSVAGINAL, May 28, 2013, 9:01. INDICATIONS : Abnormal bleeding. MEDICAL HISTORY : Chronic obstructive pulmonary disease. Gastroesophageal reflux disease. Congestive heart failure. Hyp erthyroidism. Ovarian cyst. Anemia. MRSA. Blood transfusion. Depression. Anxiety. Chemotherapy. SURGICAL HISTORY : Exploratory laparotomy. ENCOUNTER: Initial ACUITY: > 1 year PAIN SCORE: 0/10 LOCATION: Bilateral pelvis MEASUREMENTS: UTERUS: 10.5 x 8.57.7 cm ENDOMETRIAL STRIPE: 3 mm RIGHT OVARY: 4.1 x 3.4 x 2.8 cm LEFT OVARY: 7.5 x 4.2 x 3.7 cm FINDINGS: UTERUS: The myometrium has heterogeneous echotexture with a questionable mass measuring 5.8 x 6.8 x 6.5 cm.. RIGHT OVARY: Ovary contains no mass or significant cystic lesion. LEFT OVARY: Ovary contains no mass or significant cystic lesion. MISCELLANEOUS: No free fluid. CONCLUSION: Questionable mass in the uterus, possible leiomyoma. Ovaries have a normal appearance with prominent functional cyst on the left ovary. Landon Fuchs MD on June 19, 2017 at 11:30 Board Certified Radiologist. This report was verified electronically.
[2017-06-19 12:39] LABS: HEMATOCRIT 27.5 % (35.0-46.0); MEAN CELL VOLUME 65.8 FL (80.0-100.0); MEAN CORPUSCULAR HEMOGLOBIN 19.2 PG (27.0-34.0); PLATELET COUNT 236 TH/MM3 (150-450); RED BLOOD COUNT 4.18 MIL/MM3 (4.00-5.30); RED CELL DISTRIBUTION WIDTH 25.7 % (11.6-17.2); WHITE BLOOD COUNT 8.7 TH/MM3 (4.0-11.0)
[2017-06-19 12:40] LABS: MEAN CORPUSCULAR HGB CONC 29.2 % (32.0-36.0); REVIEW FLAG FINAL
== END 2017-06-19 15:44 | disposition home or self-care (01) | DRG 812 ==
LOC: NEPC 13:29 → NEDA 16:04 → NEPFCDU 17:57 → OBSVTOIN 06-18 14:08 → N06A 06-18 16:35
PROVIDERS: ADMIT Hospitalist; ATTEND Hospitalist
PROC: 30233N1 Transfusion of Nonautologous Red Blood Cells into Peripheral Vein, Percutaneous Approach (ICD-10-PCS; principal; 2017-06-17)
DX: D50.8 Other iron deficiency anemias (principal); Z68.43 Body mass index [BMI] 50.0-59.9, adult; I10 Essential (primary) hypertension; E66.01 Morbid (severe) obesity due to excess calories; J44.9 Chronic obstructive pulmonary disease, unspecified; K21.9 Gastro-esophageal reflux disease without esophagitis; N92.0 Excessive and frequent menstruation with regular cycle; E89.0 Postprocedural hypothyroidism; E28.2 Polycystic ovarian syndrome; H05.20 Unspecified exophthalmos; N94.10 Unspecified dyspareunia; N93.8 Other specified abnormal uterine and vaginal bleeding; N92.1 Excessive and frequent menstruation with irregular cycle; F12.90 Cannabis use, unspecified, uncomplicated; F17.210 Nicotine dependence, cigarettes, uncomplicated; F32.9 Major depressive disorder, single episode, unspecified; F41.9 Anxiety disorder, unspecified; Z91.19 Patient's noncompliance with other medical treatment and regimen
CPT/HCPCS: 36430; 76830; 76856; 80048; 80053; 82728; 82948; 83540; 83550; 84443; 85014; 85018; 85025; 85027; 85610; 85730; 86850; 86900; 86901; 86920; 87641; J1756; J1940; J7050; P9016